=== PATIENT | female | born 2000 | race Caucasian/White ===

== ENCOUNTER 2022-10-14 12:45 | Emergency (ER) | payer MEDICAID, OTHER ==
[~2022-10-14] VITALS: Ht 162.6 cm; Wt 60.9 kg
[2022-10-14 14:31] LABS: Urine Bacteria FEW /hpf (None Seen); Urine Blood 3+ /uL (Negative); Urine Hyaline Cast FEW /lpf (0 - 2); Urine Mucus FEW (None Seen); Urine WBC 4 /hpf (0 - 5)
[2022-10-14] MEDS ORDERED: CEPH-322 PO (14:55)
[2022-10-14 15:49] VITALS: BP 130/85
== END 2022-10-14 15:52 | disposition home or self-care (01) ==
LOC: ER 12:45
DX: N39.0 Urinary tract infection, site not specified (principal); N93.8 Other specified abnormal uterine and vaginal bleeding; F12.90 Cannabis use, unspecified, uncomplicated; Z87.442 Personal history of urinary calculi
CPT/HCPCS: 81001; 81025